=== PATIENT | male | born 1985 | race Two or more races ===

== ENCOUNTER → 2024-10-27 | Outpatient (CLI) | payer MEDICAID, SELFPAY ==
--- NOTE | 2024-10-27 12:22 | XR_ITS ---
Examination: PA lateral chest 2 views TECHNIQUE: Upright PA lateral chest 2 views Date and time: October 27, 2024 1255 hours INDICATIONS: History testicular carcinoma FINDINGS: Comparison October 10, 2022 Normal heart size No pneumonia or pulmonary edema or pulmonary nodules identified IMPRESSION: No active disease
[2024-10-27 14:10] LABS: AFP Non-Pregnant < 1.30 ng/mL (<8.10)
[2024-10-31 06:44] LABS: HCG Total,Male (Tumor Marker)* <5 mIU/mL (<5)
== END | disposition home or self-care (01) ==
PROVIDERS: PCP Physician Assistant; Referring Provider Nurse Practitioner Family; Visit Provider Nurse Practitioner Family
DX: C62.90 Malignant neoplasm of unspecified testis, unspecified whether descended or undescended (principal)
CPT/HCPCS: 36415; 71046; 82105; 84702